=== PATIENT | female | born 1960 | race Caucasian/White ===

== ENCOUNTER 2021-12-23 16:45 | Outpatient (RCR) | payer BC, SELFPAY | END 2022-01-01 23:59 | disposition home or self-care (01) | PROVIDERS: PCP Family Medicine; Visit Provider Clinical Nurse Specialist | DX: Z45.2 Encounter for adjustment and management of vascular access device (principal); C55 Malignant neoplasm of uterus, part unspecified | CPT/HCPCS: 99211 ==

== ENCOUNTER 2022-07-24 14:16 | Outpatient (RCR) | payer BC, SELFPAY ==
[2022-04-07] MEDS: HEPARIN 500 UNIT/5 ML SYRINGE IVF (16:02)
[2022-04-07] MEDS: SODIUM CHLORIDE 0.9 % (FLUSH) 10 ML SYRINGE IVF (16:02)
== END 2022-10-04 23:59 | disposition home or self-care (01) ==
LOC: CCIC 14:16
PROVIDERS: PCP Physician Assistant; Referring Provider Physician Assistant; Visit Provider Clinical Nurse Specialist
DX: C55 Malignant neoplasm of uterus, part unspecified (principal)
CPT/HCPCS: 99211; J1642

== ENCOUNTER 2023-04-06 15:00 | Outpatient (RCR) | payer BC, MEDICARE, SELFPAY ==
[2022-10-13] MEDS: SODIUM CHLORIDE 0.9 % (FLUSH) 10 ML SYRINGE IVF (14:07)
[2022-10-13] MEDS: HEPARIN 500 UNIT/5 ML SYRINGE IVF (14:08)
[2023-04-06] MEDS: SODIUM CHLORIDE 0.9 % (FLUSH) 10 ML SYRINGE IVF (15:17)
[2023-04-06] MEDS: HEPARIN 500 UNIT/5 ML SYRINGE IVF (15:17)
== END 2023-04-11 23:59 | disposition home or self-care (01) ==
LOC: CCIC 15:00
PROVIDERS: PCP Family Medicine; Referring Provider Physician Assistant; Visit Provider Clinical Nurse Specialist
DX: C55 Malignant neoplasm of uterus, part unspecified (principal)
CPT/HCPCS: 99211; J1642

== ENCOUNTER 2023-12-03 15:00 | Outpatient (RCR) | payer MEDICARE, BC, SELFPAY ==
[2023-07-09] MEDS: HEPARIN 500 UNIT/5 ML SYRINGE IVF (11:33)
[2023-07-09] MEDS: SODIUM CHLORIDE 0.9 % (FLUSH) 10 ML SYRINGE IVF (11:34)
[2023-12-03] MEDS: HEPARIN 500 UNIT/5 ML SYRINGE IVF (15:15)
[2023-12-03] MEDS: SODIUM CHLORIDE 0.9 % (FLUSH) 10 ML SYRINGE IVF (15:15)
== END 2024-01-02 23:59 | disposition home or self-care (01) ==
LOC: CCIC 15:00
PROVIDERS: PCP Family Medicine; Referring Provider Family Medicine; Visit Provider Clinical Nurse Specialist
DX: C55 Malignant neoplasm of uterus, part unspecified (principal); Z45.2 Encounter for adjustment and management of vascular access device
CPT/HCPCS: 99211; J1642

== ENCOUNTER 2024-05-23 11:00 | Outpatient (RCR) | payer MEDICARE, BC, SELFPAY ==
[2024-03-07] MEDS: HEPARIN 500 UNIT/5 ML SYRINGE IVF (11:28)
[2024-03-07] MEDS: SODIUM CHLORIDE 0.9 % (FLUSH) 10 ML SYRINGE IVF (11:28)
[2024-05-23] MEDS: SODIUM CHLORIDE 0.9 % (FLUSH) 10 ML SYRINGE IVF (11:25)
[2024-05-23] MEDS: HEPARIN 500 UNIT/5 ML SYRINGE IVF (11:25)
== END 2024-09-03 23:59 | disposition home or self-care (01) ==
LOC: CCIC 11:00
PROVIDERS: PCP Family Medicine; Referring Provider Family Medicine; Visit Provider Clinical Nurse Specialist
DX: C55 Malignant neoplasm of uterus, part unspecified (principal); Z45.2 Encounter for adjustment and management of vascular access device
CPT/HCPCS: 99211; J1642

== ENCOUNTER 2025-02-25 14:30 | Outpatient (RCR) | payer MEDICARE, BC, SELFPAY ==
[2024-09-16] MEDS: SODIUM CHLORIDE 0.9 % (FLUSH) 10 ML SYRINGE IVF (11:20)
[2024-09-16] MEDS: HEPARIN 500 UNIT/5 ML SYRINGE IVF (11:20)
[2025-02-25] MEDS: HEPARIN 500 UNIT/5 ML SYRINGE IVF (14:49)
[2025-02-25] MEDS: SODIUM CHLORIDE 0.9 % (FLUSH) 10 ML SYRINGE IVF (14:49)
== END 2025-03-15 23:59 | disposition home or self-care (01) ==
LOC: CCIC 14:30
PROVIDERS: PCP Family Medicine; Referring Provider Family Medicine; Visit Provider Clinical Nurse Specialist
DX: C55 Malignant neoplasm of uterus, part unspecified (principal)
CPT/HCPCS: 99211; J1642